=== PATIENT | male | born 1945 | race Caucasian/White ===

== ENCOUNTER 2021-03-01 10:12 | Emergency (ER) | payer MEDICAID, OTHER ==
[~2021-03-01] VITALS: Ht 177.8 cm; Wt 79.8 kg
[~2021-03-01 10:12] MED LIST: CIPR750T17 PO
[2021-03-01] MEDS ORDERED: ACETAMINOPHEN 500 MG TABLET PO ONE (11:00)
[2021-03-01] MEDS ORDERED: SODIUM CHLORIDE 0.9% 1,000 ML IV ONE (11:00)
[2021-03-01 11:06] LABS: GLUCOSE,POINT OF CARE 95 MG/DL (70-110)
[2021-03-01 11:13] LABS: COVID AG,FIA SOURCE NASOPHARYNGEAL
[2021-03-01 11:26] LABS: CALCIUM, TOTAL 8.6 mg/dL (8.8-10.5); CREATININE 1.41 mg/dL (0.60-1.30); POTASSIUM 4.1 mmol/L (3.5-5.1)
[2021-03-01 11:42] LABS: BASOPHILS % (AUTO) 0.1 % (0.0-2.0); EOSINOPHILS % (AUTO) 0.1 % (1.0-6.0); HEMATOCRIT 43.5 % (41-53); HEMOGLOBIN 14.7 g/dL (13.5-17.5); LYMPHOCYTES # (AUTO) 0.8 K/uL (1.0-4.8); LYMPHOCYTES % (AUTO) 14.4 % (22.0-44.0); MEAN CORPUSCULAR HEMOGLOBIN 27.8 pg (26.0-34.0); MEAN CORPUSCULAR HGB CONC 33.8 G/dL (31.0-37.0); MEAN CORPUSCULAR VOLUME 82 fL (80-100); MONOCYTES # (AUTO) 0.6 K/uL (0.1-1.0); MONOCYTES % (AUTO) 9.8 % (2.0-9.0); NEUTROPHILS # (AUTO) 4.3 K/uL (1.8-7.7); NEUTROPHILS % (AUTO) 75.6 % (40.0-70.0); PLATELET COUNT (AUTO) 113 K/uL (150-450); RED BLOOD CELL COUNT(AUTO) 5.28 MIL/uL (4.50-5.90); RED CELL DISTRIBUTION WIDTH 14.4 % (11.5-14.5)
[2021-03-01 13:38] VITALS: BP 134/71
== END 2021-03-01 14:04 | disposition home or self-care (01) ==
LOC: EMS 10:14
DX: U07.1 COVID-19 (principal); R55 Syncope and collapse; Z79.899 Other long term (current) drug therapy
CPT/HCPCS: 71045; 80048; 81002; 82962; 85025; 93005; 96360; 99285; 36415-L1; 36415-TC

== ENCOUNTER 2021-03-19 15:28 | Inpatient (IN) | payer MEDICAID, OTHER ==
[~2021-03-19] VITALS: Ht 175.3 cm; Wt 86.4 kg
[2021-03-19 19:07] LABS: BASOPHILS % (AUTO) 0.3 % (0.0-2.0); EOSINOPHILS % (AUTO) 0.3 % (1.0-6.0); HEMATOCRIT 36.4 % (41-53); HEMOGLOBIN 12.4 g/dL (13.5-17.5); LYMPHOCYTES # (AUTO) 0.8 K/uL (1.0-4.8); LYMPHOCYTES % (AUTO) 6.4 % (22.0-44.0); MEAN CORPUSCULAR HEMOGLOBIN 27.5 pg (26.0-34.0); MEAN CORPUSCULAR HGB CONC 33.9 G/dL (31.0-37.0); MEAN CORPUSCULAR VOLUME 81 fL (80-100); MONOCYTES # (AUTO) 1.3 K/uL (0.1-1.0); MONOCYTES % (AUTO) 10.8 % (2.0-9.0); NEUTROPHILS # (AUTO) 9.9 K/uL (1.8-7.7); NEUTROPHILS % (AUTO) 82.2 % (40.0-70.0); PLATELET COUNT (AUTO) 238 K/uL (150-450); RED BLOOD CELL COUNT(AUTO) 4.49 MIL/uL (4.50-5.90); RED CELL DISTRIBUTION WIDTH 13.8 % (11.5-14.5)
[2021-03-19 19:14] LABS: ANION GAP 13 mmol/L (8-16); CALCIUM, TOTAL 8.2 mg/dL (8.8-10.5); CARBON DIOXIDE 23 mmol/L (22-29); CHLORIDE 102 mmol/L (98-107); CREATININE 1.32 mg/dL (0.60-1.30); GLOMERULAR FILTR. RATE CALC 53 mL/min (>60); GLUCOSE,RANDOM 87 mg/dL (70-110); POTASSIUM 3.1 mmol/L (3.5-5.1); SODIUM SERUM 138 mmol/L (136-145); UREA NITROGEN, BLOOD 27 mg/dL (7-18)
[2021-03-19 19:28] LABS: ALANINE AMINOTRANSFERASE 33 U/L (12-78); ALBUMIN 2.3 g/dL (3.4-5.0); ALKALINE PHOSPHATASE 67 U/L (46-116); ASPARTATE AMINOTRANSFERASE 46 U/L (15-37); CREATINE KINASE, TOTAL ONLY 63 U/L (39-308); THYROID STIMULATING HORMONE 0.74 uIU/mL (0.36-3.74)
[2021-03-19 19:52] LABS: COVID AG,FIA SOURCE NASAL SWAB
[2021-03-19] MEDS ORDERED: POTASSIUM CHLORIDE 20 MEQ ER TABLET PO ONE (21:30)
[2021-03-20] MEDS ORDERED: SODIUM CHLORIDE 0.9% 1,000 ML IV ONE ×2 (01:15→14:45)
[2021-03-20 02:59] LABS: APPEARANCE,URINE CLEAR (CLEAR); GLUCOSE, URINE (UA) NEGATIVE (NEGATIVE); KETONES,URINE 40 mg/dL (NEGATIVE); LEUKOCYTE ESTERASE ,URINE TRACE (NEGATIVE); NITRATE,URINE NEGATIVE (NEGATIVE); OCCULT BLOOD,URINE NEGATIVE (NEGATIVE); PH,URINE 6.5 (5.0-8.0); PROTEIN,URINE POS 1+ (NEGATIVE)
[2021-03-20 03:00] LABS: BACTERIA,URINE Few /HPF (None Seen); BILIRUBIN,URINE PRELIM. POSITIVE (NEGATIVE); RBC,URINE 0-2 /HPF (0-2)
[2021-03-20 03:04] LABS: AMPHET/METH SCREEN,URINE NEGATIVE (NEGATIVE); BARBITURATE SCREEN, URINE NEGATIVE (NEGATIVE); BENZODIAZEPINES SCREEN,URINE NEGATIVE (NEGATIVE); CANNABINOID SCREEN,URINE NEGATIVE (NEGATIVE); COCAINE SCREEN,URINE NEGATIVE (NEGATIVE); METHADONE SCREEN, URINE NEGATIVE (NEGATIVE); OPIATE SCREEN,URINE NEGATIVE (NEGATIVE)
[2021-03-20 03:05] LABS: PHENCYCLIDINE SCREEN,URINE NEGATIVE (NEGATIVE)
[2021-03-20] MEDS ORDERED: ONDANSETRON HCL 4 MG/2 ML VIAL IVP ONE (13:00)
[2021-03-20] MEDS ORDERED: MORPHINE SULFATE 4 MG/ML SYRINGE IVP ONE (13:00)
[2021-03-20] MEDS ORDERED: POTASSIUM CHL 10 MEQ/WATER 50 ML IV PRN (14:45)
[2021-03-20] MEDS ORDERED: ACETAMINOPHEN 325 MG TABLET PO PRN (14:45)
[2021-03-20] MEDS: HEPARIN SODIUM,PORCINE 5,000 UNITS/ML VIAL SQ SCH ×2 (15:55→23:24)
[2021-03-20 18:41] VITALS: BP 161/88
[2021-03-20 20:34] VITALS: BP 128/72
[2021-03-20] MEDS: DOCUSATE SODIUM 100 MG CAPSULE PO SCH (21:00)
[2021-03-21 04:00] VITALS: BP 148/89
[2021-03-21 06:29] LABS: BASOPHILS % (AUTO) 1.5 % (0.0-2.0); EOSINOPHILS % (AUTO) 0.7 % (1.0-6.0); HEMATOCRIT 37.6 % (41-53); HEMOGLOBIN 12.8 g/dL (13.5-17.5); LYMPHOCYTES # (AUTO) 0.8 K/uL (1.0-4.8); LYMPHOCYTES % (AUTO) 6.6 % (22.0-44.0); MEAN CORPUSCULAR HEMOGLOBIN 27.6 pg (26.0-34.0); MEAN CORPUSCULAR VOLUME 81 fL (80-100); NEUTROPHILS # (AUTO) 9.9 K/uL (1.8-7.7); NEUTROPHILS % (AUTO) 83.2 % (40.0-70.0); PLATELET COUNT (AUTO) 221 K/uL (150-450); RED BLOOD CELL COUNT(AUTO) 4.64 MIL/uL (4.50-5.90); RED CELL DISTRIBUTION WIDTH 13.8 % (11.5-14.5)
[2021-03-21 06:49] LABS: ANION GAP 12 mmol/L (8-16); CALCIUM, TOTAL 8.5 mg/dL (8.8-10.5); CARBON DIOXIDE 22 mmol/L (22-29); CHLORIDE 105 mmol/L (98-107); GLUCOSE,RANDOM 80 mg/dL (70-110); SODIUM SERUM 139 mmol/L (136-145); UREA NITROGEN, BLOOD 22 mg/dL (7-18)
[2021-03-21 07:04] LABS: GLOMERULAR FILTR. RATE CALC > 60 mL/min (>60)
[2021-03-21] MEDS: HEPARIN SODIUM,PORCINE 5,000 UNITS/ML VIAL SQ SCH ×3 (08:00→23:24)
[2021-03-21] MEDS: DOCUSATE SODIUM 100 MG CAPSULE PO SCH ×2 (10:28→20:16)
[2021-03-21] MEDS: FAMOTIDINE 20 MG TABLET PO SCH (10:28)
[2021-03-21] MEDS: ASPIRIN 81 MG CHEWABLE TABLET PO SCH (10:28)
[2021-03-21 12:17] VITALS: BP 138/78
[2021-03-21 15:46] VITALS: BP 134/63
[2021-03-21 19:55] VITALS: BP 153/83
[2021-03-21] MEDS: OxyCODONE HCL/ACETAMINOPHEN 5-325 MG TABLET PO PRN (21:33)
[2021-03-22 04:05] VITALS: BP 120/79
[2021-03-22] MEDS: DOCUSATE SODIUM 100 MG CAPSULE PO SCH ×2 (09:46→20:02)
[2021-03-22] MEDS: HEPARIN SODIUM,PORCINE 5,000 UNITS/ML VIAL SQ SCH ×2 (09:47→16:46)
[2021-03-22] MEDS: FAMOTIDINE 20 MG TABLET PO SCH (09:47)
[2021-03-22] MEDS: ASPIRIN 81 MG CHEWABLE TABLET PO SCH (09:47)
[2021-03-22 15:46] VITALS: BP 134/63
[2021-03-22 19:30] VITALS: BP 163/85
[2021-03-23] MEDS: OxyCODONE HCL/ACETAMINOPHEN 5-325 MG TABLET PO PRN
[2021-03-23] MEDS: HEPARIN SODIUM,PORCINE 5,000 UNITS/ML VIAL SQ SCH ×3 (08:00→15:04)
[2021-03-23] MEDS: DOCUSATE SODIUM 100 MG CAPSULE PO SCH ×2 (08:31→21:17)
[2021-03-23] MEDS: FAMOTIDINE 20 MG TABLET PO SCH (08:31)
[2021-03-23] MEDS: ASPIRIN 81 MG CHEWABLE TABLET PO SCH (08:31)
[2021-03-23 08:33] VITALS: BP 128/71
[2021-03-23 16:35] VITALS: BP 133/90
[2021-03-23 19:57] VITALS: BP 150/72
[2021-03-23 20:27] VITALS: BP 147/72
[2021-03-24] MEDS: HEPARIN SODIUM,PORCINE 5,000 UNITS/ML VIAL SQ SCH ×3 (00:13→09:59)
[2021-03-24 05:45] VITALS: BP 143/71
[2021-03-24 08:51] VITALS: BP 155/84
[2021-03-24] MEDS: DOCUSATE SODIUM 100 MG CAPSULE PO SCH ×2 (09:00→21:00)
[2021-03-24] MEDS: FAMOTIDINE 20 MG TABLET PO SCH (09:58)
[2021-03-24] MEDS: ASPIRIN 81 MG CHEWABLE TABLET PO SCH (09:59)
[2021-03-24 12:35] VITALS: BP 124/83
[2021-03-24 16:42] VITALS: BP 124/87
[2021-03-24 20:29] VITALS: BP 145/77
[2021-03-25 00:46] VITALS: BP 135/76
[2021-03-25] MEDS: HEPARIN SODIUM,PORCINE 5,000 UNITS/ML VIAL SQ SCH ×3 (00:50→16:40)
[2021-03-25 04:31] VITALS: BP 127/59
[2021-03-25 08:07] VITALS: BP 131/76
[2021-03-25] MEDS: ASPIRIN 81 MG CHEWABLE TABLET PO SCH (09:00)
[2021-03-25] MEDS: DOCUSATE SODIUM 100 MG CAPSULE PO SCH ×2 (09:00→21:00)
[2021-03-25] MEDS: FAMOTIDINE 20 MG TABLET PO SCH (09:00)
[2021-03-25 11:29] VITALS: BP 150/84
[2021-03-25 16:23] VITALS: BP 150/95
[2021-03-25 20:20] VITALS: BP 120/78
[2021-03-26] MEDS: HEPARIN SODIUM,PORCINE 5,000 UNITS/ML VIAL SQ SCH ×4 (00:15→23:23)
[2021-03-26 06:00] VITALS: BP 124/68
[2021-03-26 08:34] VITALS: BP 140/83
[2021-03-26] MEDS: ASPIRIN 81 MG CHEWABLE TABLET PO SCH (08:55)
[2021-03-26] MEDS: FAMOTIDINE 20 MG TABLET PO SCH (08:55)
[2021-03-26] MEDS: DOCUSATE SODIUM 100 MG CAPSULE PO SCH ×2 (09:00→21:00)
[2021-03-26 18:40] VITALS: BP 129/88
[2021-03-26] MEDS ORDERED: TAMSULOSIN HCL 0.4 MG CAPSULE PO PRN (20:45)
[2021-03-26 21:06] LABS: APPEARANCE,URINE CLEAR (CLEAR); GLUCOSE, URINE (UA) NEGATIVE (NEGATIVE); KETONES,URINE 15 mg/dL (NEGATIVE); LEUKOCYTE ESTERASE ,URINE NEGATIVE (NEGATIVE); NITRATE,URINE NEGATIVE (NEGATIVE); OCCULT BLOOD,URINE NEGATIVE (NEGATIVE); PROTEIN,URINE TRACE (NEGATIVE)
[2021-03-26 21:08] LABS: BILIRUBIN,URINE PRELIM. POSITIVE (NEGATIVE)
[2021-03-27 04:55] VITALS: BP 129/77
[2021-03-27 08:08] VITALS: BP 113/73
[2021-03-27 08:28] LABS: BASOPHILS % (AUTO) 0.5 % (0.0-2.0); EOSINOPHILS % (AUTO) 1.5 % (1.0-6.0); HEMATOCRIT 38.2 % (41-53); HEMOGLOBIN 12.9 g/dL (13.5-17.5); LYMPHOCYTES # (AUTO) 1.5 K/uL (1.0-4.8); LYMPHOCYTES % (AUTO) 16.8 % (22.0-44.0); MEAN CORPUSCULAR HEMOGLOBIN 27.6 pg (26.0-34.0); MEAN CORPUSCULAR HGB CONC 33.8 G/dL (31.0-37.0); MEAN CORPUSCULAR VOLUME 82 fL (80-100); MONOCYTES # (AUTO) 0.7 K/uL (0.1-1.0); MONOCYTES % (AUTO) 8.1 % (2.0-9.0); NEUTROPHILS # (AUTO) 6.5 K/uL (1.8-7.7); NEUTROPHILS % (AUTO) 73.1 % (40.0-70.0); PLATELET COUNT (AUTO) 209 K/uL (150-450); RED BLOOD CELL COUNT(AUTO) 4.69 MIL/uL (4.50-5.90); RED CELL DISTRIBUTION WIDTH 13.8 % (11.5-14.5)
[2021-03-27] MEDS: HEPARIN SODIUM,PORCINE 5,000 UNITS/ML VIAL SQ SCH (08:39)
[2021-03-27] MEDS: DOCUSATE SODIUM 100 MG CAPSULE PO SCH (08:40)
[2021-03-27] MEDS: ASPIRIN 81 MG CHEWABLE TABLET PO SCH (08:40)
[2021-03-27] MEDS: FAMOTIDINE 20 MG TABLET PO SCH (08:40)
[2021-03-27 08:44] LABS: CALCIUM, TOTAL 8.8 mg/dL (8.8-10.5); CREATININE 1.19 mg/dL (0.60-1.30); POTASSIUM 3.3 mmol/L (3.5-5.1)
[2021-03-27 12:06] VITALS: BP 154/75
[2021-03-27] MEDS: POTASSIUM CHLORIDE 20 MEQ ER TABLET PO PRN ×3 (12:20→12:24)
[2021-03-27] MEDS ORDERED: TAMS-13 PO (14:33)
[2021-03-27 15:21] VITALS: BP 126/78
== END 2021-03-27 16:26 | disposition home health service (06) | DRG 469 ==
LOC: EMS 15:28 → 6N 03-20 14:35
PROVIDERS: ADMIT Internal Medicine; ATTEND Internal Medicine
DX: N17.9 Acute kidney failure, unspecified (principal); E44.0 Moderate protein-calorie malnutrition; R62.7 Adult failure to thrive; M47.816 Spondylosis without myelopathy or radiculopathy, lumbar region; E87.6 Hypokalemia; Z20.822 Contact with and (suspected) exposure to COVID-19; G89.29 Other chronic pain; M54.9 Dorsalgia, unspecified; R29.6 Repeated falls; Z86.16 Personal history of COVID-19; Z68.28 Body mass index [BMI] 28.0-28.9, adult; Z79.899 Other long term (current) drug therapy; Z59.02 Unsheltered homelessness
CPT/HCPCS: 70450; 72100; 80048; 80053; 81001; 81003; 82550; 84132; 84443; 84484; 85025; 85651; 86140; 93005; 97162; 99285; G0378; G0480; J1644; J2270; J2405; J7030